=== PATIENT | female | born 1980 | race Caucasian/White ===

== ENCOUNTER 2017-08-06 19:19 | Emergency (ER) | payer OTHER ==
[~2017-08-06] VITALS: Ht 154.9 cm; Wt 75.4 kg
[~2017-08-06 19:19] MED LIST: AMOXICILLIN500 MG OR; FLEXERIL5 MG PO; LORTAB5 PO; NAPROSYN500 MG PO; NO HOME MEDS
[2017-08-06 20:27] LABS: URINE BLOOD DIPSTICK NEGATIVE (NEGATIVE); URINE COLOR YELLOW; URINE GLUCOSE - DIPSTICK NEGATIVE (NEGATIVE); URINE KETONE 40 mg/dL (NEGATIVE); URINE LEUK ESTERASE NEGATIVE (NEGATIVE); URINE NITRITE - DIPSTICK NEGATIVE (Negative); URINE PH 5.5 (4.5-8.0); URINE PROTEIN - DIPSTICK TRACE mg/dL (NEG-TRACE); URINE SPECIFIC GRAVITY >=1.030; URINE UROBILINOGEN - DIPSTICK 0.2 E.U./dL (0.2)
[2017-08-06 20:30] LABS: HEMATOCRIT 46.3 % (37.0-47.0); HEMOGLOBIN 15.2 g/dl (12.0-16.0); IMMATURE GRANULOCYTES 0.2 % (0.0-1.0); MEAN CELL VOLUME 87.4 fL CALC (80.0-100.0); MEAN CORPUSCULAR HGB 28.7 pG CALC (26.0-32.0); MEAN CORPUSCULAR HGB CONC 32.8 g/L CALC (32.0-36.0); NEUT# 6.79 thou/uL (2.00-7.15); RED BLOOD COUNT 5.3 mill/uL (4.20-5.60); RED CELL DISTRI WIDTH 13.3 % (11.5-15.5); URINE BILIRUBIN - DIPSTICK SMALL (NEGATIVE); URINE CLARITY CLEAR
[2017-08-06 20:36] LABS: ALBUMIN 4.7 g/dL (3.2-5.0); ALKALINE PHOSPHATASE 56 u/l (38-126); AMYLASE 68 u/l (30-110); ANION GAP 16 (6-22 (CALC)); BILIRUBIN, TOTAL 0.8 mg/dL (0.0-1.4); BUN 13 mg/dL (7-17); BUN/CREATININE RATIO 18 (12-20 (CALC)); CALCIUM 10.3 mg/dL (8.4-10.2); CARBON DIOXIDE 24 mmol/l (22-30); CHLORIDE 107 mmol/l (95-108); CREATININE 0.7 mg/dL (0.5-1.0); GFR > 60 ML/MIN (>=60 (CALC)); GFR FOR AFR.AMER. > 60 ML/MIN (>=60 (CALC)); GLUCOSE 100 mg/dL (65-105); LIPASE 77 u/l (23-300); POTASSIUM 4.1 mmol/l (3.5-5.1); SGOT/AST 25 u/l (14-36); SGPT/ALT 39 u/l (9-52); SODIUM 143 mmol/l (137-146); TOTAL PROTEIN 7.5 g/dL (6.3-8.2)
[2017-08-06 21:01] LABS: BARBITURATES NEGATIVE (NEGATIVE); COCAINE NEGATIVE (NEGATIVE); METHADONE NEGATIVE (NEGATIVE); OXCYCODONE NEGATIVE (NEGATIVE); TETRAHYDROCANNABIONOL NEGATIVE (NEGATIVE); TRICYLIC ANTIDEPRESSANTS NEGATIVE (NEGATIVE)
[2017-08-06] MEDS ORDERED: ZOFRAN ODT4 MG PO (22:35)
[2017-08-06] MEDS ORDERED: ULTRAM50 M1 PO (22:35)
[2017-08-06 22:50] VITALS: BP 139/74
== END 2017-08-06 22:52 | disposition home or self-care (01) | DRG 392 ==
LOC: ED 19:19
PROVIDERS: Emergency Medicine
DX: R10.32 Left lower quadrant pain (principal); F17.210 Nicotine dependence, cigarettes, uncomplicated; K52.9 Noninfective gastroenteritis and colitis, unspecified; N83.201 Unspecified ovarian cyst, right side; R11.10 Vomiting, unspecified; K57.30 Diverticulosis of large intestine without perforation or abscess without bleeding
CPT/HCPCS: Q9967

== ENCOUNTER 2017-10-25 17:44 | Emergency (ER) | payer OTHER ==
[~2017-10-25] VITALS: Ht 154.9 cm; Wt 65.0 kg
[~2017-10-25 17:44] MED LIST changes: +ULTRAM50 M1 PO; +ZOFRAN ODT4 MG PO
[2017-10-25 19:15] LABS: INFLUENZA A NONE DETECTED (NONE DETECT); INFLUENZA B NONE DETECTED (NONE DETECT)
[2017-10-25] MEDS ORDERED: AMOXICILLIN500 MG PO (19:24)
[2017-10-25] MEDS ORDERED: LOMOTIL2.5 MG PO (19:26)
[2017-10-25] MEDS ORDERED: NAPROSYN500 MG PO (19:26)
[2017-10-25 20:02] VITALS: BP 140/78
== END 2017-10-25 20:00 | disposition home or self-care (01) | DRG 153 ==
LOC: ED 17:44
PROVIDERS: Family Medicine
DX: J06.9 Acute upper respiratory infection, unspecified (principal); J02.9 Acute pharyngitis, unspecified; R05 Cough; R19.7 Diarrhea, unspecified; R51 Headache; R50.9 Fever, unspecified

== ENCOUNTER 2018-01-29 11:19 | Emergency (ER) | payer OTHER ==
[~2018-01-29] VITALS: Ht 154.9 cm; Wt 76.8 kg
[~2018-01-29 11:19] MED LIST changes: +AMOXICILLIN500 MG PO; +LOMOTIL2.5 MG PO
[2018-01-29] MEDS ORDERED: IBUPROFEN600 MG PO (12:39)
[2018-01-29 12:40] VITALS: BP 135/88
== END 2018-01-29 12:45 | disposition home or self-care (01) | DRG 605 ==
LOC: ED 11:19
DX: S70.02XA Contusion of left hip, initial encounter (principal); F17.210 Nicotine dependence, cigarettes, uncomplicated; S90.02XA Contusion of left ankle, initial encounter; S30.0XXA Contusion of lower back and pelvis, initial encounter; S39.012A Strain of muscle, fascia and tendon of lower back, initial encounter; S76.012A Strain of muscle, fascia and tendon of left hip, initial encounter; S96.912A Strain of unspecified muscle and tendon at ankle and foot level, left foot, initial encounter; Y92.009 Unspecified place in unspecified non-institutional (private) residence as the place of occurrence of the external cause; J45.909 Unspecified asthma, uncomplicated; W10.9XXA Fall (on) (from) unspecified stairs and steps, initial encounter

== ENCOUNTER 2018-07-13 21:30 | Observation (INO) | payer OTHER ==
[~2018-07-13] VITALS: Ht 154.9 cm; Wt 77.7 kg
[~2018-07-13 21:30] MED LIST changes: +IBUPROFEN600 MG PO
--- NOTE | 2018-07-13 21:45 | NUR ---
TO ROOM 8 VIA WHEELCHAIR
--- NOTE | 2018-07-13 21:46 | NUR ---
PT. WITH C/O RUQ PAIN NAUSEA AND VOMITING STARTING EARLIER THIS EVENING. ABD. SOFT WITH + BOWEL SOUNDS. PT. ALSO C/O DIARRHEA.
--- NOTE | 2018-07-13 22:06 | NUR ---
IVF, IV PAIN MED AND IM ANTIEMETIC GIVEN PER MD ORDER.
[2018-07-13 22:27] LABS: URINE BILIRUBIN - DIPSTICK NEGATIVE (NEGATIVE); URINE BLOOD DIPSTICK NEGATIVE (NEGATIVE); URINE COLOR YELLOW; URINE GLUCOSE - DIPSTICK NEGATIVE (NEGATIVE); URINE KETONE NEGATIVE (NEGATIVE); URINE LEUK ESTERASE NEGATIVE (NEGATIVE); URINE NITRITE - DIPSTICK NEGATIVE (Negative); URINE PH 6.5 (4.5-8.0); URINE PROTEIN - DIPSTICK NEGATIVE (NEG-TRACE); URINE SPECIFIC GRAVITY <=1.005; URINE UROBILINOGEN - DIPSTICK 0.2 E.U./dL (0.2)
--- NOTE | 2018-07-13 22:27 | NUR ---
PT. STATES HER ABD. PAIN IS NOW REDUCED TO A 4 ON A SCALE OF 1-10.
[2018-07-13 22:29] LABS: URINE CLARITY CLEAR
[2018-07-13 22:33] LABS: HEMATOCRIT 43.3 % (37.0-47.0); IMMATURE GRANULOCYTES 0.2 % (0.0-5.0); MEAN CELL VOLUME 87.8 fL CALC (80.0-100.0); MEAN CORPUSCULAR HGB 28.4 pG CALC (26.0-32.0); MEAN CORPUSCULAR HGB CONC 32.3 g/L CALC (32.0-36.0); NEUT# 5.02 thou/uL (2.00-7.15); RED BLOOD COUNT 4.93 mill/uL (4.20-5.60); RED CELL DISTRI WIDTH 14.1 % (11.5-15.5)
[2018-07-13 22:49] LABS: ALBUMIN 4.6 g/dL (3.2-5.0); ALKALINE PHOSPHATASE 75 u/l (38-126); AMYLASE 123 u/l (30-110); ANION GAP 16 (6-22 (CALC)); BILIRUBIN, TOTAL 0.5 mg/dL (0.0-1.4); BUN 12 mg/dL (7-17); BUN/CREATININE RATIO 24 (12-20 (CALC)); CARBON DIOXIDE 21 mmol/l (22-30); CHLORIDE 109 mmol/l (95-108); CREATININE 0.5 mg/dL (0.5-1.0); GFR > 60 ML/MIN (>=60 (CALC)); GFR FOR AFR.AMER. > 60 ML/MIN (>=60 (CALC)); LIPASE 569 u/l (23-300); POTASSIUM 4.4 mmol/l (3.5-5.1); SGOT/AST 33 u/l (14-36); SODIUM 141 mmol/l (137-146); TOTAL PROTEIN 7.6 g/dL (6.3-8.2)
[2018-07-14] MEDS ORDERED: CRESTOR40 MG PO (00:23)
--- NOTE | 2018-07-14 01:06 | NUR ---
MD IN ROOM TO DISCUSS CLINICAL FINDINGS, PT. VERBALIZED UNDERSTANDING.
--- NOTE | 2018-07-14 01:33 | NUR ---
IV PAIN MED AND IV PROTONIX GIVEN PER MD ORDER.
--- NOTE | 2018-07-14 01:48 | NUR ---
Admission Note Report Given to: JOSE JUAN YODER Transported by: Wheelchair X Stretcher Transported with: X Nurse Transporter X Patent IV O2 Chief Nurse Executive
--- NOTE | 2018-07-14 01:51 | NUR ---
PT. STATES HER ABD. PAIN IS NOW DECREASED TO A 6 ON A SCALE OF 1-10.
--- NOTE | 2018-07-14 01:51 | NUR ---
PT. TRANSFERED TO [place] FLOOR VIA STRETCHER.
--- NOTE | 2018-07-14 01:56 | NUR ---
PT ARRIVED TO UNIT VIA STRETCHER WITH ER STAFF AND SIGNIFICANT OTHER; ALERT AND ORIENTED IN STABLE CONDITION. ASSISTED SELF FROM STRETCHER TO BED. STATES THAT HER ABDOMINAL PAIN IS CURRENTLY A 3/10 AFTER MORPHINE. RESPIRATIONS EVEN AND UNLABORED ON ROOM AIR. ORIENTED TO ROOM AND CALL LIGHT SYSTEM. INFORMED OF NPO DIET AND IV FLUIDS INITIATED. PLAN OF CARE DISCUSSED. PT ENCOURAGED TO VERABLIZE CONCERNS. STATES UNDERSTANDING. SAFETY MEASURES IN PLACE. CALL LIGHT WITHIN REACH.
[2018-07-14 02:00] VITALS: BP 123/86
[2018-07-14 04:14] VITALS: BP 100/65
--- NOTE | 2018-07-14 04:19 | NUR ---
PT ASLEEP AT THIS TIME WITH NO SIGNS OF DISTRESS. RESPIRATIONS EVEN AND UNLABORED ON ROOM AIR. IV FLUIDS INFUSING WITHOUT DIFFICULTY; IV SITE APPEARS HEALTHY. PT IS STAND BY ASSIST; USES CALL LIGHT PRN FOR ASSISTANCE. SAFETY MEASURES IN PLACE. CALL LIGHT WITHIN REACH.
--- NOTE | 2018-07-14 07:00 | NUR ---
REPORT RECEIVED FROM PARESH MANZANO;PT RESTING IN BED;INTRODUCED SELF TO PT AND POC DISCUSSED;PT AMBULATED TO RESTROOM WITH STEADY GAIT;RESPIRATIONS EVEN AND UNLABORED ON RA;PT REPORTS ABDOMINAL PAIN IS STILL PRESENT BUT HAS DECREASED IN SEVERITY SINCE ADMISSION;NPO DIET REINFORCED;IV FLUIDS CONTINUE TO INFUSE WELL TO RAC;PT DENIES ANY CURRENT NEEDS AND IS INSTRUCTED TO CALL FOR ASSISTANCE IF NEEDED;FALL PRECAUTIONS IN PLACE WITH BED IN THE LOWEST POSITION;CALL LIGHT IN REACH;WILL CONTINUE TO MONITOR
[2018-07-14 07:47] VITALS: BP 112/59
--- NOTE | 2018-07-14 07:50 | NUR ---
PT RESTING IN SEMI FOWLERS POSITION;PT COMPLAINS OF RUQ PAIN RATING 5/10 ON THE PAIN SCALE AND REQUESTS PAIN MEDICATION;PT MEDICATED WITH MORPHINE 2MG IVP,WILL MONITOR FOR EFFECT;VS OBTAINED AND ASSESSMENT COMPLETED;RESPIRATIONS EVEN AND UNLABORED ON RA,CLEAR LUNG SOUNDS;ABDOMEN SOFT ON PALPATION AND HYPOACTIVE IN ALL 4 QUADRANTS,TENDERNESS NOTED TO RIGHT UPPER QUADRANT;WEAK PEDAL PULSES;#20G TO RAC INFUSING NS @ 125ML/HR,SITE APPEARS HEALTHY;NPO DIET REINFORCED AND PT VERBALIZES UNDERSTANDING;PT DENIES ANY ADDITIONAL NEEDS AT THIS TIME AND IS ENCOURAGED TO CALL FOR ASSISTANCE IF NEEDED;CALL LIGHT IN REACH;WILL CONTINUE TO MONITOR
--- NOTE | 2018-07-14 08:35 | NUR ---
STU DE LEÓN,ANRP AT BEDSIDE.
--- NOTE | 2018-07-14 08:43 | NUR ---
RT AT BEDSIDE
[2018-07-14 10:43] LABS: CHOLESTEROL HDL RATIO 2.9 (<4.4 (CALC))
--- NOTE | 2018-07-14 11:30 | NUR ---
PT RESTING IN BED WITH SIGNIFICANT OTHER AT BEDSIDE;PT REPORTS NAUSEA AND CURRENT TEMP 99.8;PT MEDICATED WITH PRN ZOFRAN 4MG IVP AND TYLENOL 500MG PO,WILL MONITOR FOR EFFECTIVENESS;FIRST DOSE OF GASTROGRAFIN ADMINISTERED AT THIS TIME AND PT TOLERATED WELL;IV FLUIDS CONTINUE TO INFUSE TO RAC;PT DENIES ANY ADDITIONAL NEEDS AT THIS TIME;INSTRUCTED TO CALL FOR ASSISTANCE IF NEEDED;WILL CONTINUE TO MONITOR
--- NOTE | 2018-07-14 11:48 | NUR ---
SECOND DOSE OF GASTROGRAFIN ADMINISTERED
--- NOTE | 2018-07-14 12:20 | NUR ---
LAST DOSE OF GASTROGRAFIN ADMINISTERED AT THIS TIME,PT TOLERATING WELL. WILL NOTIFY RADIOLOGY WHEN FINISHED.
--- NOTE | 2018-07-14 12:31 | NUR ---
AT BEDSIDE DISCUSSING POC.
--- NOTE | 2018-07-14 12:45 | NUR ---
PER DR.RAJIHA MEZA CANCELLED AND NEW ORDER FOR ULTRASOUND OF ABDOMEN OBTAINED; CONSULTED.
--- NOTE | 2018-07-14 13:34 | NUR ---
PT TRANSFERRED TO ULTRASOUND VIA WHEELCHAIR IN STABLE CONDITION ACCOMPANIED BY HOWARD LEE
--- NOTE | 2018-07-14 14:00 | NUR ---
PT RETURNED FROM ULTRASOUND IN STABLE CONDITION
--- NOTE | 2018-07-14 14:10 | NUR ---
PT REPORTS HEADACHE AND ABDOMINAL PAIN RATING 7/10 ON THE PAIN SCALE;PRN LORTAB 5/325MG PO ADMINISTERED AT THIS TIME;COOL CLOTH PROVIDED TO HEAD;PT DENIES ANY ADDITIONAL NEEDS AT THIS TIME;WILL CONTINUE TO MONITOR
[2018-07-14 14:35] LABS: C. DIFFICILE TOXIN A&B NEGATIVE (NEGATIVE)
[2018-07-14 15:45] VITALS: BP 94/55
--- NOTE | 2018-07-14 16:20 | NUR ---
PT RESTING IN BED WATCHING TV;PT REPORTS ABDOMINAL PAIN HAS SUBSIDED AT THIS TIME BUT HEADACHE STILL PRESENT RATING A 4/10 ON THE PAIN SCALE;COOL CLOTH PROVIDED AND LIGHTS DIMMED;RESPIRATIONS REMAIN EVEN AND UNLABORED ON RA;IV FLUIDS CONTINUE TO INFUSE AT 125ML/HR TO RAC;PT DENIES ANY ADDITIONAL NEEDS AT THIS TIME;NPO DIET REINFORCED AND PT VERBALIZES UNDERSTANDING;CALL LIGHT IN REACH;WILL CONTINUE TO MONITOR
[2018-07-14 18:41] VITALS: BP 107/89
--- NOTE | 2018-07-14 19:10 | NUR ---
DR. CHASE AT BEDSIDE; DISCUSSED IMAGING RESULTS AND PLAN FOR HIDA SCAN TOMORROW.
--- NOTE | 2018-07-14 19:15 | NUR ---
BEDSIDE REPORT RECEIVED FROM SADAF LOPEZ. PT SITTING UP IN BED C/O SEVERE HEADACHE 05/03; STATES THAT SHE THINKS IT IS THE MORPHINE OR A CAFFEINE HEADACHE. RESPIRATIONS EVEN AND UNLABORED ON ROOM AIR. PT CURRENTLY ON FULL LIQUID DIET AND WILL BE NPO AFTER MIDNIGHT FOR IMAGING. PLAN OF CARE REVIEWED. PT ENCOURAGED TO VERBALIZE CONCERNS. STATES UNDERSTANDING. SAFETY MEASURES IN PLACE. CALL LIGHT WITHIN REACH.
--- NOTE | 2018-07-14 20:30 | NUR ---
TORADOL GIVEN FOR HEADACHE AND COOL CLOTH WITH GOOD EFFECT; HEADACHE NOW 3/10. PT HAD NAUSEA AFTER SNACK AND ZOFRAN GIVEN ALSO WITH GOOD EFFECT. AT BEDSIDE. PT REQUESTS HER CHOLESTEROL MEDICATION; NEW ORDER RECEIVED FOR LIPITOR AND ADMINISTERED AT HS. NO OTHER REQUESTS OR CONCERS AT THIS TIME.
--- NOTE | 2018-07-15 00:38 | NUR ---
PT ASLEEP AT THIS TIME WITH NO SIGNS OF DISTRESS. RESPIRATIONS EVEN AND UNLABORED ON ROOM AIR. IV FLUIDS INFUSING WITHOUT DIFFICULTY; IV SITE APPEARS HEALTHY. INDEPENDENT IN ROOM; USES CALL LIGHT PRN FOR ASSISTANCE. SAFETY MEASURES IN PLACE. CALL LIGHT WITHIN REACH.
[2018-07-15 04:15] VITALS: BP 99/64
--- NOTE | 2018-07-15 04:35 | NUR ---
PATIENT REPORTS THAT HER HEADACHE HAS INCREASED TO A 9/10; SHE IS HOLDING HER HEAD AND TEARFUL. TORADOL GIVEN AND ICE PACK APPLIED. WILL REASSES. SAFETY MEASURES IN PLACE. CALL LIGHT WITHIN REACH.
[2018-07-15 06:09] LABS: IMMATURE GRANULOCYTES 0.4 % (0.0-5.0); MEAN CELL VOLUME 90.3 fL CALC (80.0-100.0); MEAN CORPUSCULAR HGB 28.7 pG CALC (26.0-32.0); MEAN CORPUSCULAR HGB CONC 31.8 g/L CALC (32.0-36.0); NEUT# 5.7 thou/uL (2.00-7.15); RED BLOOD COUNT 4.04 mill/uL (4.20-5.60); RED CELL DISTRI WIDTH 14.4 % (11.5-15.5)
[2018-07-15 06:25] LABS: ANION GAP 7 (6-22 (CALC)); BUN 8 mg/dL (7-17); BUN/CREATININE RATIO 18 (12-20 (CALC)); CARBON DIOXIDE 23 mmol/l (22-30); CHLORIDE 114 mmol/l (95-108); CREATININE 0.5 mg/dL (0.5-1.0); GFR > 60 ML/MIN (>=60 (CALC)); GFR FOR AFR.AMER. > 60 ML/MIN (>=60 (CALC)); POTASSIUM 4.1 mmol/l (3.5-5.1); SODIUM 141 mmol/l (137-146)
[2018-07-15 06:29] LABS: HEMATOCRIT 36.5 % (37.0-47.0); HEMOGLOBIN 11.6 g/dl (12.0-16.0)
--- NOTE | 2018-07-15 07:00 | NUR ---
REPORT RECEIVED FROM PARESH PEARSON. PT APPEARS TO BE SLEEPING. NO S/S OF DISTRESS. CALL LIGHT IN REACH. WILL CONTINUE TO MONITOR.
[2018-07-15 07:08] VITALS: BP 95/59
--- NOTE | 2018-07-15 08:41 | NUR ---
DR. BLANTON CALLED R/T NUC MED BEING OUT OF ORDER. NO NEW ORDERS AT THIS TIME.
--- NOTE | 2018-07-15 08:45 | NUR ---
PT ASSESSMENT COMPLETE. PT A/O X3. SPEECH IS CLEAR. RESP EVEN AND UNLABORED. LUNG SOUNDS CLEAR. BOWEL SOUNDS ACTIVE X4. PT DENIES ANY ABD PAIN. STRONG RADIAL AND PEDAL PULSES. ABDOMEN ROUND, SOFT. #20 RAC NS @125. SITE APPEARS HEALTHY. PLAN OF CARE DISCUSSED. SAFETY PRECAUTIONS IN PLACE. CALL LIGHT IN REACH. WILL CONTINUE TO MONITOR.
--- NOTE | 2018-07-15 11:08 | NUR ---
PT C/O ACHING HEADACHE 6 OUT OF 10 ON PAIN SCALE. MEDICATED W/ TRAMADOL 50 MG PO. RELAXATION TECHNIQUES IN PLACE. WILL CONTINUE TO MONITOR
--- NOTE | 2018-07-15 11:15 | NUR ---
DR. ROD AND SAVI PERAZA IN TO SEE PT
[2018-07-15 12:00] VITALS: BP 114/70
--- NOTE | 2018-07-15 12:42 | NUR ---
PT SITTING UP IN RECLINER. PT STATES HEADACHE HAS DECREASED TO A 2 OUT OF 10 ON PAIN SCALE. PT DENIES ANY FURTHER NEEDS. CALL LIGHT IN REACH. WILL CONTINUE TO MONITOR
--- NOTE | 2018-07-15 13:52 | NUR ---
[facility] TRANSPORTING PT VIA STRETCHER TO [facility]
--- NOTE | 2018-07-15 16:47 | NUR ---
PT C/O FEELING NAUSEOUS. MEDICATED W/ 4 MG ZOFRAN IV. WILL CONTINUE TO MONITOR
--- NOTE | 2018-07-15 18:26 | NUR ---
PT TRANSPORTED BACK TO [facility] BY [facility] VIA STRETCHER IN STABLE CONDITION
--- NOTE | 2018-07-15 19:05 | NUR ---
DR. ALICIA CALLED IN REGARDS TO PT, STATING HE WILL TAKE HER DOWN FOR SURGERY TOMORROW. NPO AFTER MIDNIGHT.
--- NOTE | 2018-07-15 19:30 | NUR ---
PATIENT AWAKE ALERT AND WALKING AROUND IN THE ROOM AND THE HALLS. PATIENT WITH NO COMPLAINTS AT THIS TIME. PATIENT HAS BEEN NOTIFIED THAT DR. MCNEIL IS PLANNING TO DO SURGERY TOMRROW SOMETIME-NOT EXACTUALLY SURE WHAT TIME YET. PATIENT WILL BE NPO AFTER MIDNIGHT. [id number] UNDERSTANDING OF THE STATED. TAKING SIPS OF FLUIDS TOLERATING OK. SAFETY PRECAUTIONS REINFORCED.CALL LIGHT IN REACH. WILL CONT TO MONITOR.
[2018-07-15 20:00] VITALS: BP 114/70
--- NOTE | 2018-07-15 22:00 | NUR ---
PATIENT TOOK SHOWER WITH HIBICLENS-IVF NS UP AND INFUSING AT 125CC/HR. SITE REMAINS HEALTHY AT THIS TIME. MEDICATED WITH LORTAB 5/325MG PO FOR RUQ PAIN. REINFORCED. NPO FAFTER MIDNIGHT. CALL LIGHT IN REACH. WILL CONT TO MONITOR.
[2018-07-16] VITALS (11 sets, daily range): BP systolic 101–138; BP diastolic 62–76
--- NOTE | 2018-07-16 03:25 | NUR ---
RESTING IN BED-APPEARS SLEEPING AT THIS TIME WITH EYES CLOSED AND POSITIONED OF LEFT SIDE. NPO AT THIS TIME. CALL LIGHT IN REACH. WILL CONT TO MONITOR.
--- NOTE | 2018-07-16 05:43 | NUR ---
PATIENT REMAINS NPO FOR OR TODAY. IVF PATENT AND INFUWSING AT 125CC/HR VIA RIGHT AC SITE. CALL LIGHT IN REACH. WILL CONT TO MONITOR.
--- NOTE | 2018-07-16 07:00 | NUR ---
PT REPORT RECIEVED FROM PARESH DIAZ. PT AMBULATING THROUGH THE HALLS. NO S/S OF DISTRESS. WILL CONTINUE TO MONITOR
--- NOTE | 2018-07-16 07:32 | NUR ---
PT ASSESSMENT COMPLETE. PT A/O X3. SPEECH IS CLEAR. NPO AT THIS TIME. RESP EVEN AND UNLABORED. LUNGS SOUNDS CLEAR. ABDOMEN ROUND, SOFT. BOWEL SOUNDS ACTIVE X4. PT C/O ACHING RUQ PAIN 4 OUT OF 10 ON PAIN SCALE. MEDICATED W/ 50 MG TRAMADOL PO. REPOSITONED IN BED FOR COMFORT. STRONG RADIAL AND PEDAL PULSES. @20 RAC NS @125. SITE APPEARS HEALTHY. PT DENIES ANY FURHTER NEEDS. PLAN OF CARE DISCUSSED. SAFETYY PRECAUTIONS IN PLACE. CALL LIGHT IN REACH. WILL CONTINUE TO MONITOR
--- NOTE | 2018-07-16 10:57 | NUR ---
PT TRANSPORTED BACK TO [facility] VIA STRETCHER ACCOMPIANED BY PARESH SMITH. PT APPEARS DROWSY. RESP EVEN AND UNLABORED. PT HAS 3 SMALL INCISIONS TO ABDOMEN. DERMABOND INTACT, DEVONTE. PT C/O DISCOMFORT TO ABDOMEN AT THIS TIME. PAIN SCALE AND MONITORING DISCUSSED W/ PT. PT STATES UNDERSTANDING. #20 RAC NS @125. SITE APPEARS HEALTHY. ICE CHIPS GIVEN TO PT. INCENTIVE SPIROMETER AT BESIDE AND ENCOURAGED USE. FAMILY AT BEDSIDE. SAFETY PRECAUTIONS IN PLACE. CALL LIGHT IN REACH. WILL CONTINUE TO MONITOR.
--- NOTE | 2018-07-16 12:14 | NUR ---
PT C/O ACHING ABOMINAL PAIN 6 OUT OF 10. MEDICATED W/ ONE LORTAB PO. PT DENIES ANY FURTHER NEEDS. FAMILY AT BEDSIDE. CALL LIGHT IN REACH. WILL CONTINUE TO MONITOR.
--- NOTE | 2018-07-16 12:44 | NUR ---
PT C/O FEELING NAUSEOUS. MEDICATED W/ 4GM ZOFRAN IV. PT STATES PAIN MEDICATION HELPED, PAIN TO ABDOMEN IS NOW A 3 OUT OF 10 ON PAIN SCALE. PT DENIES ANY FURTHER NEEDS AT THIS TIME. FAMILY AT BESIDE. CALL LIGHT IN REACH. WILL CONTINUE TO MONITOR.
--- NOTE | 2018-07-16 14:26 | NUR ---
PT AMBULATING IN THE HALLS W/ ASSISTANCE OF A FAMILY MEMBER. NO S/S OF DISTRESS. WILL CONINUE TO MONITOR
--- NOTE | 2018-07-16 16:17 | NUR ---
PT RESTING IN BED. PT STATES SHE ONLY HAS ABDOMINAL PAIN WHEN SHE MOVES. DENIES ANY PAIN MEDICATION AT THIS TIME. DISCUSSED MEDICATION ADMINISTRATION W/ PT. PT STATES UNDERSTANDING. ENCOURAGED USE OF INCENTIVE SPIROMETER. PT REQUEST JELLO AND PUDDING. FAMILY AT BEDSIDE. CALL LIGHT IN REACH. WILL CONTINUE TO MONITOR
--- NOTE | 2018-07-16 17:17 | NUR ---
PT AMBULATED THE HALLS, NOW REQUESTING PAIN MEDICATION R/T C/O SHARP ABDOMINAL PAIN 8 OUT OF 10 ON PAIN SCALE.M MEDICATED W/ ONE LORTAB PO. PT ENCOURAGED TO RELAX IN RECLINER. PT DENIES ANY FURTHER NEEDS. CALL LIGHT IN REACH. WILL CONTINUE TO MONITOR
--- NOTE | 2018-07-16 17:40 | NUR ---
PT STATES PAIN PILL IS NOT WORKING YET. PAIN TO ABDOMEN IS STILL A 8 OUT OF 10. REPOSITIONING TECHINQUES ENFORCED. PT DENIES ANY FURTHER NEEDS. WILL CONTINUE TO MONITOR.
--- NOTE | 2018-07-16 19:30 | NUR ---
PATIENT UP AND AMBULATING IN THE COLON WITH STEADY GAIT AND NO COMPLAINTS. ALERT AND ORIENTEDX3. IV SITE TO RIGHT AC INTACT WITH IVF PATENT AND INFUSING AT 125CC/HR. TAKING PO FLUIDS AND TOLERATING WELL. NO COMPLAINTS AT THIS TIME. WILL CONT TO MONITOR.
--- NOTE | 2018-07-16 23:13 | NUR ---
IV SITE TO THE RIGHT AC IS LEAKING AROUND THE SITE AND SITE WAS D/C'ED WITH CATH INTACT. NEW IV STARTED TO THE LEFT WRIST WITH GOOD BLOOD RETURN. PATIENT MEDICATED FOR LLQ PAIN WITH TORADOL 30MG IVP. PATIENT VOIDING QS DARYA URINE. ABD IS SOFT WITH BS+. 3 SMALL PUNCTURE WOUNDS TO THE ABD WITH DERMABOND INTACT-NO DRAINAGE NOTED. PATIENT IS ABLE TO DEMONSTRATE PROPER USE OF IS AND VERBALIZES CORRECT USE OF THE DEVICE. PATIENT DECLINES USE OF SCD'S AT THIS TIME IS UP AND AMBULATING IN THE COLON WITHOUT ANY DIFFICULTY. SAFETY PRECAUTIONS REINFORCED. CALL LIGHT IN REACH. WILL CONT TO MONITOR.
--- NOTE | 2018-07-16 23:53 | NUR ---
APPEARS SLEEPING POSITIONED ON LEFT SIDE WITH EYES CLOSED. RESP ARE EVEN AND UNLABORED. CALL LIGHT IN REACH. WILL CONT TO MONITOR.
[2018-07-17 00:38] VITALS: BP 111/77
--- NOTE | 2018-07-17 02:36 | NUR ---
PATIENT RESTING IN BED-C/O SEVERE H/A-MEDICATED WITH TYLENOL 500MG PO PER PATIENT REQUEST AND ICE PACK PROVIDED. SAFETY PRECAUTIONS REINFORCED. CALL LIGHT IN REACH. WILL CONT TO MONITOR.
--- NOTE | 2018-07-17 03:39 | NUR ---
PATIENT STATES THAT HE HEADACHE IS GONE. RESTING IN BED-NO FURTHER COMPLAINTS. CALL LIGHT IN REACH. WILL CONT TO MONITOR.
[2018-07-17 04:16] VITALS: BP 142/78
[2018-07-17 05:01] LABS: HEMATOCRIT 36.2 % (37.0-47.0); HEMOGLOBIN 11.5 g/dl (12.0-16.0); IMMATURE GRANULOCYTES 0.3 % (0.0-5.0); MEAN CORPUSCULAR HGB 28.9 pG CALC (26.0-32.0); MEAN CORPUSCULAR HGB CONC 31.8 g/L CALC (32.0-36.0); NEUT# 5.56 thou/uL (2.00-7.15); RED BLOOD COUNT 3.98 mill/uL (4.20-5.60); RED CELL DISTRI WIDTH 14.3 % (11.5-15.5)
[2018-07-17 05:14] LABS: AMYLASE 54 u/l (30-110); LIPASE 46 u/l (23-300)
[2018-07-17 05:22] LABS: ALKALINE PHOSPHATASE 38 u/l (38-126); ANION GAP 9 (6-22 (CALC)); BILIRUBIN, TOTAL 0.5 mg/dL (0.0-1.4); BUN 8 mg/dL (7-17); BUN/CREATININE RATIO 16 (12-20 (CALC)); CARBON DIOXIDE 23 mmol/l (22-30); CHLORIDE 113 mmol/l (95-108); CREATININE 0.5 mg/dL (0.5-1.0); GFR > 60 ML/MIN (>=60 (CALC)); GFR FOR AFR.AMER. > 60 ML/MIN (>=60 (CALC)); MAGNESIUM 1.8 mg/dL (1.6-2.3); POTASSIUM 3.9 mmol/l (3.5-5.1); SGOT/AST 33 u/l (14-36); SODIUM 141 mmol/l (137-146)
[2018-07-17 05:23] LABS: ALBUMIN 3.3 g/dL (3.2-5.0); TOTAL PROTEIN 5.7 g/dL (6.3-8.2)
[2018-07-17 08:00] VITALS: BP 136/83
--- NOTE | 2018-07-17 08:00 | NUR ---
ASSESSMENT IS COMPLETED: IV SITE IS FREE FROM REDNESS OR EDEMA. HR IS REG,PULSES ARE STRONG X4, ABD IS SOFT WITH ACTIVE BS. BREATH SOUNDS ARE CLEAR, BILATERALLY, NO C/O SOB, DRESSING ON ABD IS CDI. PT HAS BEEN AMBULATING IN THE ROOM. CONTINUE TO OSBERVE AND MONITOR.
--- NOTE | 2018-07-17 09:35 | NUR ---
PT OBSERVED TWICE WALKING THE HALLS. PT HAS NO COMPLAINTS. PT HAD REPORTED SHE IS SUPPOSE TO GO HOME TODAY SO SHE DOESNT WANT A SHOWER HERE. PT STATED SHE WILL GET A SHOWER WHEN SHE GETS HOME. CALL JAIME IN REACH. PT SITTING IN CHAIR AT THIS TIME.
--- NOTE | 2018-07-17 11:00 | NUR ---
PT HAS BEEN AMBULATING IN THE COLON WITH NO DISTRESS NOTED. FAMILY IS WITH PT. WAITING ON PAPERWORK FROM HER JOB., WILL THEN FILL OUT AND REFAX BACK.
[2018-07-17 11:45] VITALS: BP 127/77
[2018-07-17] MEDS ORDERED: TRAMADOL HCL50 MG PO (11:46)
--- NOTE | 2018-07-17 12:50 | NUR ---
PT RECEIVED DISCHARGE INSTRUCTIONS AND VERBALIZED UNDERSTANDING. IV SITE IS DISCONTINUED CATHETER INTACT., NO REDNESS OR EDEMA. CONTINUE TO OSBERVE AND MONITOR.
--- NOTE | 2018-07-17 18:34 | NUR ---
INFORMED FAMILY MEMEBER THAT THE FORM (FMLA) FOR HER JOB HAS NOT COME THROUGH YET. THEY WILL CALL AND FIND OUT WHAT IS GOING ON
--- NOTE | 2018-07-17 19:05 | NUR ---
PT CALLED BACK AND INFORMED THIS ASSISTANT [employer]OMENS [employer] COACH THAT THE PAPER IS NOT SUPPOSED TO BE FAXED, THEY ARE WAITING FOR ITS ARRIVAL IN THE MAIL AND THEN THEY WILL BRING IT UP.
== END 2018-07-17 12:54 | disposition home or self-care (01) | DRG 417 ==
LOC: ED 21:30 → ED-I 07-14 01:11 → ED 07-14 01:24 → MS2 07-14 01:25
PROVIDERS: Emergency Medicine; Internal Medicine Nephrology; Nurse Practitioner Family; ADMIT Internal Medicine; ATTEND Internal Medicine
PROC: 0FT44ZZ Resection of Gallbladder, Percutaneous Endoscopic Approach (ICD-10-PCS; principal; 2018-07-16)
DX: K81.0 Acute cholecystitis (principal); K85.90 Acute pancreatitis without necrosis or infection, unspecified; E78.5 Hyperlipidemia, unspecified; J45.909 Unspecified asthma, uncomplicated; F17.210 Nicotine dependence, cigarettes, uncomplicated
CPT/HCPCS: A9537; G0378; J2710; J2805; Q9967; S0164

== ENCOUNTER 2019-12-08 | Emergency (ER) | payer OTHER ==
[~2019-12-08] MED LIST changes: +CRESTOR40 MG PO; +TRAMADOL HCL50 MG PO
[2019-12-08] MEDS ORDERED: PRILOSEC20 MG/CAP PO (15:59)
[2019-12-08] MEDS ORDERED: VENTOLIN H108 MCG/AC IN (16:14)
[2019-12-08] MEDS ORDERED: ROSUVASTATIN CA20 MG PO (16:14)
[2019-12-08] MEDS ORDERED: PREDNISONE20 MG PO (16:14)
== END 2019-12-08 17:32 | disposition home or self-care (01) | DRG 563 ==
DX: S63.502A Unspecified sprain of left wrist, initial encounter (principal); F17.210 Nicotine dependence, cigarettes, uncomplicated; X50.0XXA Overexertion from strenuous movement or load, initial encounter

== ENCOUNTER 2020-02-04 | Emergency (ER) | payer OTHER ==
[~2020-02-04] MED LIST changes: +PREDNISONE20 MG PO; +PRILOSEC20 MG/CAP PO; +ROSUVASTATIN CA20 MG PO; +VENTOLIN H108 MCG/AC IN
[2020-02-04 06:33] LABS: IMMATURE GRANULOCYTES 0.2 % (0.0-5.0); MEAN CORPUSCULAR HGB 27.6 pG CALC (26.0-32.0); MEAN CORPUSCULAR HGB CONC 32.4 g/dL CAL (32.0-36.0); NEUT# 5.74 thou/uL (2.00-7.15); RED BLOOD COUNT 4.96 mill/uL (4.20-5.60); RED CELL DISTRI WIDTH 13.4 % (11.5-15.5)
[2020-02-04 06:34] LABS: URINE BILIRUBIN - DIPSTICK NEGATIVE (NEGATIVE); URINE BLOOD DIPSTICK TRACE-LYSED (NEGATIVE); URINE COLOR YELLOW; URINE GLUCOSE - DIPSTICK NEGATIVE (NEGATIVE); URINE KETONE NEGATIVE (NEGATIVE); URINE NITRITE - DIPSTICK NEGATIVE (Negative); URINE PROTEIN - DIPSTICK NEGATIVE (NEG-TRACE); URINE UROBILINOGEN - DIPSTICK 0.2 E.U./dL (0.2)
[2020-02-04 06:35] LABS: URINE LEUK ESTERASE TRACE (NEGATIVE)
[2020-02-04 06:36] LABS: HEMATOCRIT 42.3 % (37.0-47.0); HEMOGLOBIN 13.7 g/dl (12.0-16.0); MEAN CELL VOLUME 85.3 fL CALC (80.0-100.0)
[2020-02-04 06:49] LABS: ALKALINE PHOSPHATASE 47 u/l (38-126); AMYLASE 84 u/l (30-110); ANION GAP 10 (6-22 (CALC)); BILIRUBIN, TOTAL 0.4 mg/dL (0.0-1.4); BUN 12 mg/dL (7-17); BUN/CREATININE RATIO 21 (12-20 (CALC)); CARBON DIOXIDE 25 mmol/l (22-30); CHLORIDE 104 mmol/l (95-108); CREATININE 0.6 mg/dL (0.5-1.0); GFR > 60 ML/MIN (>=60 (CALC)); GFR FOR AFR.AMER. > 60 ML/MIN (>=60 (CALC)); LIPASE 73 u/l (23-300); POTASSIUM 3.8 mmol/l (3.5-5.1); SGOT/AST 25 u/l (14-36); SODIUM 136 mmol/l (137-146)
[2020-02-04 07:01] LABS: MYOGLOBIN 24 ng/mL (0 - 62)
[2020-02-04 07:38] LABS: ALBUMIN 4.2 g/dL (3.2-5.0); TOTAL PROTEIN 7.1 g/dL (6.3-8.2)
[2020-02-04] MEDS ORDERED: CYCLOBENZAPR5 MG PO (10:33)
--- NOTE | 2020-02-06 09:31 | NUR ---
Notified patient of Covid results (Negative). Advised patient to follow up with PCP or return to ED for urgent needs. Advised patient to continue with Covid prevention practices. Patient verbalized understanding.
== END 2020-02-04 10:56 | disposition home or self-care (01) | DRG 313 ==
PROVIDERS: Emergency Medicine
DX: R07.89 Other chest pain (principal); F17.210 Nicotine dependence, cigarettes, uncomplicated; Z20.828 Contact with and (suspected) exposure to other viral communicable diseases

== ENCOUNTER 2020-10-02 11:52 | Emergency (ER) | payer OTHER ==
[~2020-10-02] VITALS: Ht 154.9 cm; Wt 86.3 kg
[~2020-10-02 11:52] MED LIST changes: +CYCLOBENZAPR5 MG PO
[2020-10-02] MEDS ORDERED: LISINOPRIL5 MG PO (12:34)
[2020-10-02 13:00] LABS: URINE BILIRUBIN - DIPSTICK NEGATIVE (NEGATIVE); URINE BLOOD DIPSTICK SMALL (NEGATIVE); URINE COLOR YELLOW; URINE GLUCOSE - DIPSTICK NEGATIVE (NEGATIVE); URINE KETONE NEGATIVE (NEGATIVE); URINE LEUK ESTERASE TRACE (Negative); URINE NITRITE - DIPSTICK NEGATIVE (Negative); URINE PROTEIN - DIPSTICK NEGATIVE (NEG-TRACE); URINE SPECIFIC GRAVITY <=1.005; URINE UROBILINOGEN - DIPSTICK 0.2 E.U./dL (0.2)
[2020-10-02 13:01] LABS: URINE CLARITY SL CLOUDY; URINE WBC 0-2 WBC/hpf (0-5)
[2020-10-02 15:00] VITALS: BP 131/79
== END 2020-10-02 15:00 | disposition home or self-care (01) | DRG 866 ==
LOC: ED 11:52
DX: B34.9 Viral infection, unspecified (principal); I10 Essential (primary) hypertension; J45.909 Unspecified asthma, uncomplicated; E78.5 Hyperlipidemia, unspecified; F17.290 Nicotine dependence, other tobacco product, uncomplicated; Z20.822 Contact with and (suspected) exposure to COVID-19

== ENCOUNTER 2021-05-14 22:15 | Emergency (ER) | payer OTHER ==
[~2021-05-14] VITALS: Ht 154.9 cm; Wt 84.0 kg
[~2021-05-14 22:15] MED LIST changes: +LISINOPRIL5 MG PO
[2021-05-15 03:57] VITALS: BP 108/78
[2021-05-15] MEDS ORDERED: MULT VITAMIN PO (08:44)
[2021-05-15] MEDS ORDERED: XYZAL ALLERGY 245 MG (08:44)
== END 2021-05-15 03:57 | disposition home or self-care (01) | DRG 866 ==
LOC: ED 22:15
DX: B34.9 Viral infection, unspecified (principal); I10 Essential (primary) hypertension; J45.909 Unspecified asthma, uncomplicated; E78.5 Hyperlipidemia, unspecified; Z20.822 Contact with and (suspected) exposure to COVID-19

== ENCOUNTER 2022-03-11 20:07 | Emergency (ER) | payer OTHER ==
[~2022-03-11] VITALS: Ht 154.9 cm; Wt 73.0 kg
[~2022-03-11 20:07] MED LIST changes: +MULT VITAMIN PO; +XYZAL ALLERGY 245 MG
[2022-03-11 20:19] VITALS: BP 100/71
[2022-03-11 20:30] VITALS: BP 107/55
[2022-03-11 20:46] VITALS: BP 107/44
[2022-03-11 21:00] VITALS: BP 98/61
[2022-03-11] MEDS ORDERED: LORTAB 5/3255 MG PO (21:14)
[2022-03-11] MEDS ORDERED: VOLTAREN75 MG PO (21:14)
[2022-03-11 21:16] VITALS: BP 93/53
[2022-03-11 21:20] VITALS: BP 93/53
== END 2022-03-11 21:20 | disposition home or self-care (01) | DRG 563 ==
LOC: ED 20:07
DX: S86.911A Strain of unspecified muscle(s) and tendon(s) at lower leg level, right leg, initial encounter (principal); I10 Essential (primary) hypertension; J45.909 Unspecified asthma, uncomplicated; E78.5 Hyperlipidemia, unspecified; X50.0XXA Overexertion from strenuous movement or load, initial encounter; Y93.89 Activity, other specified; Y92.003 Bedroom of unspecified non-institutional (private) residence as the place of occurrence of the external cause
CPT/HCPCS: L1830

== ENCOUNTER 2022-06-30 18:05 | Emergency (ER) | payer OTHER ==
[2022-06-30] VITALS (14 sets, daily range): BP systolic 110–133; BP diastolic 48–81
[~2022-06-30] VITALS: Ht 154.9 cm; Wt 76.0 kg
[~2022-06-30 18:05] MED LIST changes: +LORTAB 5/3255 MG PO; +VOLTAREN75 MG PO
[2022-06-30] MEDS ORDERED: SINGULAIR10 MG PO (18:11)
[2022-06-30] MEDS ORDERED: LEXAPRO10 MG PO (18:11)
[2022-06-30 19:11] LABS: HEMATOCRIT 25.6 % (37.0-47.0); HEMOGLOBIN 7.3 g/dl (12.0-16.0); MEAN CELL VOLUME 64.6 fL CALC (80.0-100.0); MEAN CORPUSCULAR HGB 18.4 pG CALC (26.0-32.0); MEAN CORPUSCULAR HGB CONC 28.5 g/dL CAL (32.0-36.0); NEUT# 5.63 thou/uL (2.00-7.15); RED BLOOD COUNT 3.96 mill/uL (4.20-5.60)
[2022-06-30 20:16] LABS: ALBUMIN 4.4 g/dL (3.2-5.0); ALKALINE PHOSPHATASE 43 u/l (38-126); ANION GAP 14 (6-22 (CALC)); BILIRUBIN, TOTAL 0.3 mg/dL (0.0-1.4); BUN 18 mg/dL (7-17); BUN/CREATININE RATIO 28 (12-20 (CALC)); CARBON DIOXIDE 21 mmol/l (22-30); CHLORIDE 105 mmol/l (95-108); CREATININE 0.7 mg/dL (0.5-1.0); GFR FOR AFR.AMER. > 60 ML/MIN (>=60 (CALC)); GFR OTHER RACES > 60 ML/MIN (>=60 (CALC)); POTASSIUM 3.6 mmol/l (3.5-5.1); SGOT/AST 27 u/l (14-36); SODIUM 137 mmol/l (137-146); TOTAL PROTEIN 7.3 g/dL (6.3-8.2)
[2022-06-30] MEDS ORDERED: CHROMAGEN1 CAP PO (22:01)
[2022-06-30] MEDS ORDERED: FIORICET PO (22:01)
[2022-06-30] MEDS ORDERED: MECLIZINE25 MG PO (22:01)
== END 2022-06-30 22:35 | disposition home or self-care (01) | DRG 312 ==
LOC: ED 18:05
PROVIDERS: Family Medicine
DX: R55 Syncope and collapse (principal); R51.9 Headache, unspecified; R42 Dizziness and giddiness; D50.9 Iron deficiency anemia, unspecified; I10 Essential (primary) hypertension; J45.909 Unspecified asthma, uncomplicated; E78.5 Hyperlipidemia, unspecified; F41.9 Anxiety disorder, unspecified

== ENCOUNTER 2022-12-02 16:11 | Emergency (ER) | payer OTHER ==
[2022-12-02] VITALS (7 sets, daily range): BP systolic 113–149; BP diastolic 73–84
[~2022-12-02] VITALS: Ht 154.9 cm; Wt 74.8 kg
[~2022-12-02 16:11] MED LIST changes: +CHROMAGEN1 CAP PO; +FIORICET PO; +LEXAPRO10 MG PO; +MECLIZINE25 MG PO; +SINGULAIR10 MG PO
[2022-12-02] MEDS ORDERED: CYCLOBENZAPRINE10 MG PO (17:13)
== END 2022-12-02 18:07 | disposition home or self-care (01) | DRG 552 ==
LOC: ED 16:11
DX: M54.2 Cervicalgia (principal); E78.5 Hyperlipidemia, unspecified; I10 Essential (primary) hypertension